=== PATIENT | female | born 1985 | race Caucasian/White ===

== ENCOUNTER 2018-08-02 18:06 | Emergency (ER) | payer MEDICAID, OTHER ==
[~2018-08-02] VITALS: Ht 170.2 cm; Wt 76.7 kg
[~2018-08-02 18:06] MED LIST: PREN-385 PO
[2018-08-02 18:25] VITALS: BP 127/72
--- NOTE | 2018-08-02 18:30 | NUR ---
PT AMBULATED TO BED 1
--- NOTE | 2018-08-02 18:38 | NUR ---
7 WKS PRENANT WITH C/O VAGINAL BLEEDING; DENIES ABDOMINAL PAIN, N/V/D;LMP 06/17/2018; . BLEEDING CONTROLLED. NO OTHER COMPLAINTS, DENIES CP/SOB/COUGH/FEVERS. HX; DENIES RX; DENIES
[2018-08-02 18:42] LABS: BASOPHILS # (AUTO) 0.1 K/uL (0.00-0.22); BASOPHILS % (AUTO) 0.6 % (0.0-2.0); EOSINOPHILS # (AUTO) 0.1 K/uL (0-0.4); EOSINOPHILS % (AUTO) 1.6 % (0.0-4.0); HEMATOCRIT 38.1 % (36-48); HEMOGLOBIN 12.3 g/dL (12.0-16.0); LYMPHOCYTES # (AUTO) 2.1 K/uL (2.5-16.5); LYMPHOCYTES % (AUTO) 24.6 % (20.5-51.1); MEAN CORPUSCULAR HEMOGLOBIN 28 pg (27-31); MEAN CORPUSCULAR HGB CONC 32 g/dL (33-37); MONOCYTES # (AUTO) 0.5 K/uL (0.8-1.0); MONOCYTES % (AUTO) 5.8 % (1.7-9.3); NEUTROPHILS # (AUTO) 5.7 K/uL (1.8-7.7); NEUTROPHILS % (AUTO) 67.4 % (42.2-75.2); PLATELET COUNT (AUTO) 252 K/uL (140-450); RED BLOOD CELL COUNT(AUTO) 4.43 MIL/uL (4.20-5.40); RED CELL DISTRIBUTION WIDTH 14.3 % (11.6-13.7); WHITE BLOOD COUNT (AUTO) 8.5 K/uL (4.8-10.8)
[2018-08-02 18:45] LABS: APPEARANCE,URINE CLEAR (CLEAR); BILIRUBIN,URINE NEGATIVE (NEGATIVE); BLOOD, URINE SMALL (NEGATIVE); COLOR,URINE YELLOW (YELLOW); LEUKOCYTE ESTERASE ,URINE NEGATIVE (NEGATIVE); NITRITE, URINE NEGATIVE (NEGATIVE); UGLUCOSE NEGATIVE (NEGATIVE)
[2018-08-02 18:52] LABS: RBC,URINE 0-5 (RARE) /HPF (0-5)
[2018-08-02 18:53] LABS: WBC,URINE NONE SEEN /HPF (0-5)
--- NOTE | 2018-08-02 19:14 | NUR ---
ASSUMED CARE OF PT FROM ARGELIA MADDOX
--- NOTE | 2018-08-02 19:18 | NUR ---
report to randal delgado
[2018-08-02 22:52] VITALS: BP 123/78
--- NOTE | 2018-08-02 22:52 | NUR ---
Patient discharged with v/s stable. Written and verbal after care instructions given and explained. Patient verbalized understanding. Ambulatory with steady gait. All questions addressed prior to discharge. Advised to follow up with PMD.
== END 2018-08-02 22:52 | disposition home or self-care (01) ==
LOC: MED 18:06
DX: O20.0 Threatened abortion (principal); Z3A.01 Less than 8 weeks gestation of pregnancy
CPT/HCPCS: 36415; 76817; 81001; 81025; 84702; 85025; 86900; 86901; 99284; Q0092

== ENCOUNTER 2018-08-03 10:08 | Emergency (ER) | payer OTHER ==
[~2018-08-03] VITALS: Ht 170.2 cm; Wt 76.7 kg
[2018-08-03 10:22] VITALS: BP 136/90
--- NOTE | 2018-08-03 10:24 | NUR ---
PT AMBULATED TO BED 10, URINE OBTAINED
--- NOTE | 2018-08-03 10:29 | NUR ---
PT C/O VAG BLEED WORSENING SINCE YESTERDAY. SEEN HERE. STATES LAST NIGHT SHE PASSED TISSUES. STATES AB CRAMPING 02/17 NO OTHER COMPLAINTS. DENIES N/V/D, DIZZINESS, SOB. HX----NONE
[2018-08-03 10:50] LABS: BASOPHILS % (AUTO) 0.6 % (0.0-2.0); EOSINOPHILS # (AUTO) 0.1 K/uL (0-0.4); EOSINOPHILS % (AUTO) 1.1 % (0.0-4.0); HEMATOCRIT 36.5 % (36-48); HEMOGLOBIN 11.7 g/dL (12.0-16.0); LYMPHOCYTES # (AUTO) 1.5 K/uL (2.5-16.5); LYMPHOCYTES % (AUTO) 23.7 % (20.5-51.1); MEAN CORPUSCULAR HEMOGLOBIN 27 pg (27-31); MEAN CORPUSCULAR HGB CONC 32 g/dL (33-37); MEAN CORPUSCULAR VOLUME 85.6 fL (80-94); MONOCYTES # (AUTO) 0.4 K/uL (0.8-1.0); MONOCYTES % (AUTO) 6.4 % (1.7-9.3); NEUTROPHILS # (AUTO) 4.3 K/uL (1.8-7.7); NEUTROPHILS % (AUTO) 68.2 % (42.2-75.2); PLATELET COUNT (AUTO) 227 K/uL (140-450); RED BLOOD CELL COUNT(AUTO) 4.27 MIL/uL (4.20-5.40); RED CELL DISTRIBUTION WIDTH 13.8 % (11.6-13.7); WHITE BLOOD COUNT (AUTO) 6.3 K/uL (4.8-10.8)
[2018-08-03 10:52] LABS: ANION GAP 12.4 (8-16); CARBON DIOXIDE 26.3 mmol/L (21-32); CREATININE 0.7 mg/dL (0.6-1.3); POTASSIUM 3.7 mmol/L (3.5-5.1)
[2018-08-03 10:59] LABS: ALBUMIN 3.5 g/dL (3.4-5.0); TOTAL BILIRUBIN 0.4 mg/dL (0.0-1.0)
[2018-08-03 13:00] VITALS: BP 104/64
== END 2018-08-03 13:00 | disposition home or self-care (01) ==
LOC: MED 10:08
DX: O03.4 Incomplete spontaneous abortion without complication (principal); Z3A.01 Less than 8 weeks gestation of pregnancy; Z79.899 Other long term (current) drug therapy
CPT/HCPCS: 36415; 76801; 80053; 81002; 81025; 84702; 85025; 99284; Q0092